=== PATIENT | female | born 1970 ===

== ENCOUNTER → 2017-01-01 | Outpatient (CLI) | payer OTHER ==
[~2017-01-01] MED LIST: TOBRO RIGHT EYE; [UNRECOGNIZED DRUG - CODE] T-DERMAL
[2017-01-01 14:34] LABS: HEMATOCRIT 43.3 % (35.0-46.0); MEAN CELL VOLUME 93.3 FL (80.0-100.0); MEAN CORPUSCULAR HEMOGLOBIN 30.9 PG (27.0-34.0); MEAN CORPUSCULAR HGB CONC 33.1 % (32.0-36.0); PLATELET COUNT 241 TH/MM3 (150-450); RED BLOOD COUNT 4.64 MIL/MM3 (4.00-5.30); RED CELL DISTRIBUTION WIDTH 12.8 % (11.6-17.2); REVIEW FLAG FINAL; WHITE BLOOD COUNT 5.2 TH/MM3 (4.0-11.0)
[2017-01-01 15:08] LABS: GLUCOSE,FASTING 103 MG/DL (74-99)
[2017-01-01 15:17] LABS: FREE T4 1.17 NG/DL (0.76-1.46)
[2017-01-01 18:23] LABS: HEMOGLOBIN A1a 1.4 %; HEMOGLOBIN A1b 0.7 %; HEMOGLOBIN Ao 85.5 %; HEMOGLOBIN F 1.1 %; HEMOGLOBIN P3 3.3 %
== END ==
LOC: ELAB 10:33
PROVIDERS: ATTEND Obstetrics & Gynecology
DX: N95.1 Menopausal and female climacteric states (principal)
CPT/HCPCS: 36415; 82947; 83001; 83036; 84439; 84443; 84480; 85027